=== PATIENT | female | born 1960 | race Caucasian/White ===

== ENCOUNTER → 2020-01-22 14:26 | Outpatient (REF) | payer BC, SELFPAY | LOC: ANHLAB 14:26 | PROVIDERS: Visit Provider Nurse Practitioner | DX: D49.2 Neoplasm of unspecified behavior of bone, soft tissue, and skin (principal) | CPT/HCPCS: 88305 ==

== ENCOUNTER → 2020-02-22 14:17 | Outpatient (REF) | payer BC, SELFPAY | LOC: ANHLAB 14:17 | PROVIDERS: Visit Provider Nurse Practitioner | DX: D49.2 Neoplasm of unspecified behavior of bone, soft tissue, and skin (principal) | CPT/HCPCS: 88305 ==

== ENCOUNTER 2021-02-27 21:23 | Emergency (ER) | payer BC, SELFPAY ==
[2021-02-27] VITALS (13 sets, daily range): BP systolic 144–175; BP diastolic 74–94; PULSE 56–85; RESP 14–21; TEMP 36.7; O2SAT 97–100
--- NOTE | ~2021-02-27 | CT_ITS ---
EXAMINATION: CT abdomen pelvis wo con DATE: 02/27/2021 23:30 INDICATION: Right lower quadrant and flank pain. Nausea. TECHNIQUE: Computed tomography (CT) of the abdomen and pelvis was performed without intravenous contr ast. The dose-length product was 857.25 mGy-cm. Automated exposure control and iterative reconstructi on technique were employed. COMPARISON: None. FINDINGS: Lung bases are unremarkable. Heart size normal. No significant pleural or pericardial effus ion. The liver, spleen, pancreas, adrenal glands and kidneys are unremarkable. Gallbladder is present. The appendix is unremarkable, although it extends into the inguinal canal. No significant vascular abnormality. No lymphadenopathy. Small fat-containing umbilical hernia. Nonob structive bowel gas pattern. No renal/ureteral stones. No hydronephrosis. No free air or free fluid. Mild lumbar spondylosis. IMPRESSION: 1. No findings to account for patient's symptoms. No acute abnormality. Reviewed, dictated and finalized at location A.
[2021-02-27 22:05] LABS: Add Urine Microscopic? YES; Appearance Urine Clear (Clear); Bilirubin Urine Negative (Negative); Blood Urine 2+ (Negative); Color Urine Colorless (Yellow); Glucose Urine UA Negative (Negative); Ketones Urine Negative (Negative); Leukocyte Esterase Ur Negative LEU/UL (Negative); Nitrate Urine Negative (Negative); Protein Urine Negative (Negative); RBC Urine 0-2 /hpf (0-2); Specific Grav Ur 1.005 (1.001-1.035); Squamous Epithelial Cell Urine Occasional /hpf (Few); Urobilinogen Urine Negative mg/dL (<2.0); WBC Urine 0-3 /hpf
[2021-02-27 22:11] LABS: Basophils Absolute Auto 0.1 K/mm3 (0.0-0.1); Basophils Percent Auto 0.9 % (0.2-1.2); Eosinophils Absolute Auto 0.3 K/mm3 (0-0.3); Eosinophils Percent Auto 3.6 % (0-4.4); Hematocrit 40.9 % (37.0-47.0); Hemoglobin 13.6 g/dL (12.0-15.0); Immature Granulocyte Absolute 0.02 K/mm3 (0.00-0.031); Immature Granulocyte Percent A 0.3 % (0-0.5); Lymphocytes Absolute Auto 1.56 K/mm3 (0.9-3.2); Lymphocytes Percent Auto 22.3 % (18.3-44.2); Mean Corpuscular HGB Conc 33.3 g/dl (32-36); Mean Corpuscular Hemoglobin 30.1 pg (26-34); Mean Corpuscular Volume 90.5 fl (80-100); Mean Platelet Volume 9.8 fl (7.4-10.4); Monocytes Absolute Auto 0.7 K/mm3 (0.1-0.6); Monocytes Percent Auto 10.3 % (2.6-8.5); Neutrophils Absolute Auto 4.4 K/mm3 (1.3-6.7); Neutrophils Percent Auto 62.6 % (45.5-73.1); Platelet Count Result 241 k/mm3 (150-375); Red Blood Count 4.52 M/mm3 (4.2-5.4); Red Cell Distribution Width 12.6 % (11.5-14.5)
[2021-02-27 22:21] LABS: Alanine Aminotransferase 19 U/L (4-35); Albumin Level 4.3 g/dL (3.5-5.1); Alkaline Phosphatase 70 U/L (38-126); Anion Gap 6 mmol/L (8-16); Aspartate Amino Transferase 20 U/L (14-36); Bilirubin,Total 0.3 mg/dL (0.2-1.3); Blood Urea Nitrogen 17 mg/dL (7-17); Calcium 9.2 mg/dL (8.4-10.2); Carbon Dioxide 26 mmol/L (22-30); Chloride 105 mmol/L (98-107); Estimated CRCL calculation 64 ml/min; Estimated Glomerular Filt Rate > 60; Glucose 134 mg/dL (65-110); Lipase 92 U/L (23-300); Potassium 3.4 mmol/L (3.4-5.0); Sodium 137 mmol/L (137-145)
--- NOTE | 2021-02-27 22:28 | ED.ABDPAIN ---
HPI - Abdominal Pain General Chief Complaint: Abdominal Pain Stated Complaint: RLQ pain Time Seen by Provider: 02/27/21 22:13 History of Present Illness HPI narrative: Patient presents with right lower quadrant and right flank pain. Patient reports she has intermittent sharp pain without any clear aggravating or alleviating factors. Patient reports it does radiate to her back. She has been previously seen for this in the ER work-up was negative. She was seen by GI and was prescribed medication but she has not attempted any medication. She returns evening as her pain appears to be more severe. She denies any urinary symptoms reports some nausea but no vomiting she denies any diarrhea. She denies any prior abdominal surgeries. Denies any vaginal bleeding or discharge Related Data Home Medications Medication Instructions Recorded Confirmed calcium carbonate 500 mg calcium 500 mg PO DAILY 01/22/20 02/25/21 (1,250 mg) capsule cholecalciferol (vitamin D3) 1,250 1,250 mcg PO MONTHLY 01/22/20 02/25/21 mcg (50,000 unit) capsule cinnamon bark 500 mg capsule 500 mg PO DAILY 01/22/20 02/25/21 coenzyme Q10 75 mg capsule 75 mg PO DAILY 01/22/20 02/25/21 estradiol 0.025 mg/24 hr 1 patch TRANSDERM 2XW 01/22/20 02/25/21 semiweekly transdermal patch fluticasone furoate 50 INHALATION 01/22/20 02/25/21 mcg/actuation blister powder for inhalation glucosamine 750 [id number] tablet PO 01/22/20 02/25/21 no.7 644 mg-vit [id number] tablet loratadine 10 mg tablet 10 mg PO DAILY 01/22/20 02/25/21 topiramate 25 mg capsule,extended 25 mg PO DAILY 01/22/20 02/25/21 release 24 hr Lactobacillus acidophilus and cap PO 02/25/21 02/25/21 rhamnosus 15 billion cell capsule aspirin 81 mg tablet,delayed 81 mg PO DAILY 02/25/21 02/25/21 release medroxyprogesterone 2.5 mg tablet 2.5 mg PO DAILY 02/25/21 02/25/21 multivit with minerals-folic acid tablet PO 02/25/21 02/25/21 200 mcg-biotin 300 mcg chew tablet pantoprazole 40 mg tablet,delayed 40 mg PO QAM 02/25/21 02/25/21 release Allergies Allergy/AdvReac Type Severity Reaction Status Date / Time Iodinated Contrast Media Allergy Severe THROAT Verified 02/27/21 21:54 SWELLING minocycline Allergy Intermediate DAMAGED Verified 02/27/21 21:54 LIVER Penicillins Allergy Intermediate NAUSEA Verified 02/27/21 21:54 VOMITING amoxicillin Allergy Unknown Rash Verified 02/27/21 21:54 Review of Systems Review of Systems: CONSTITUTIONAL: Denies fever, chills, or sweats. EYES: Denies visual changes, redness, or discharge. ENT: Denies rhinorrhea, congestion, sore throat, or otalgia. CARDIOVASCULAR: Denies chest pain, palpitations, or edema. RESPIRATORY: Denies cough or dyspnea. GASTROINTESTINAL: Denies vomiting, or diarrhea. GENITOURINARY: Denies dysuria or hematuria. SKIN: Denies rash or itching. MUSCULOSKELETAL: Denies back pain, joint pain, or myalgia. NEUROLOGIC: Denies headache, numbness, dizziness, or weakness. PSYCHIATRIC: Denies anxiety or depression. All systems reviewed & are unremarkable except as noted in HPI and below PMFSH Past Medical History Medical History Bladder endometriosis Surgical History Surgical History History of cosmetic plastic surgery S/P bilateral breast reduction rosalinda scott Family History Family History Mother Multiple myeloma Father Skin cancer Social History Social History Smoking status: Never smoker Alcohol intake: never Substance use: never Exam Narrative: GENERAL: Well-appearing, well-nourished, and in no acute distress. HEAD: Normocephalic, atraumatic. EYES: PERRLA and EOMI. ENT: Nares clear, no rhinorrhea or epistaxis. Mucous membranes moist. NECK: Supple. No masses. No JVD ABDO
[2021-02-27] MEDS: SODIUM CHLORIDE 0.9% IV 1,000 ML 999 ML IV CONT (23:00)
[2021-02-27] MEDS: fentaNYL CITRATE INJ (*CRX) 100 MCG/2 ML VIAL 50 MCG IV PUSH (23:00)
[2021-02-27] MEDS: ONDANSETRON INJ 4 MG/2 ML VIAL IV PUSH (23:01)
--- NOTE | 2021-02-27 23:35 | PC.NURSE ---
Assumed care of pt at this time, report taken from Lesley LOMAX. Pt alert and upright on stretcher. Updated on POC.
[2021-02-28 01:23] VITALS: BP 119/71; PULSE 61; RESP 16; O2SAT 99
== END 2021-02-28 01:25 | disposition home or self-care (01) ==
PROVIDERS: Emergency Provider Emergency Medicine; PCP Nurse Practitioner Family
DX: R10.31 Right lower quadrant pain (principal); Z79.82 Long term (current) use of aspirin; N80.8 Other endometriosis
CPT/HCPCS: 36415; 74176; 80053; 81001; 83690; 85025; 96361; 96374; 96375; 99284; J2405; J3010; J7030